=== PATIENT | female | born 1945 | race Caucasian/White ===

== ENCOUNTER 2017-09-15 12:20 | Emergency (ER) | payer SELFPAY, OTHER, MEDICARE | END 2017-09-15 15:30 | disposition left against medical advice (07) | LOC: FTE 12:20 | DX: Z53.21 Procedure and treatment not carried out due to patient leaving prior to being seen by health care provider (principal) ==

== ENCOUNTER 2017-10-24 15:39 | Emergency (ER) | payer SELFPAY | END 2017-10-24 17:35 | disposition left against medical advice (07) | LOC: E/R 17:35 | DX: Z53.21 Procedure and treatment not carried out due to patient leaving prior to being seen by health care provider (principal) ==

== ENCOUNTER 2017-10-25 08:55 | Emergency (ER) | payer MEDICARE, OTHER ==
[2017-10-25] MEDS: SOD CHLORIDE 0.9% 500 ML IV (10:04)
[2017-10-25 10:13] LABS: ADD MAN DIFF? NO
[2017-10-25 10:24] LABS: WHITE BLOOD COUNT 5.4 10^3/ul (4.8-10.8)
[2017-10-25 10:24] LABS: BASOPHILS % 0.6 % (0.0-2.0); EOSINOPHILS # 0.2 10^3/ul (0.0-0.5); EOSINOPHILS % 4.1 % (0.0-7.0); HEMATOCRIT 41.5 % (37.0-47.0); HEMOGLOBIN 13.6 g/dl (12.0-16.0); LYMPHOCYTES # 1.5 10^3/ul (0.8-2.9); LYMPHOCYTES % 28.4 % (15.0-51.0); MEAN CORPUSCULAR HEMOGLOBIN 28.9 pg (29.0-33.0); MEAN CORPUSCULAR HGB CONC 32.8 g/dl (32.0-37.0); MEAN CORPUSCULAR VOLUME 88.1 fl (82.0-101.0); MEAN PLATELET VOLUME 12.1 fl (7.4-10.4); MONOCYTE # 0.4 10^3/ul (0.3-0.9); MONOCYTES % 7.4 % (0.0-11.0); NEUTROPHIL # 3.2 10^3/ul (1.6-7.5); NEUTROPHILS % 59.1 % (39.0-77.0); PLATELET COUNT 138 10^3/UL (140-415); RED BLOOD COUNT 4.71 10^6/ul (4.20-5.40); RED CELL DISTRIBUTION WIDTH 13.6 % (11.5-14.5)
[2017-10-25 10:46] LABS: ADD UMIC YES; ALANINE AMINOTRANSFERASE 21 IU/L (13-69); ALBUMIN 4.1 g/dl (3.3-4.9); ALKALINE PHOSPHATASE 68 IU/L (42-121); ANION GAP 15 (8-16); ASPARTATE AMINO TRANSFERASE 20 IU/L (15-46); BILIRUBIN,INDIRECT 0.5 mg/dl (0-1.1); BILIRUBIN,TOTAL 0.5 mg/dl (0.2-1.3); BLOOD UREA NITROGEN 26 mg/dl (7-20); CALCIUM 9.2 mg/dl (8.4-10.2); CARBON DIOXIDE 27 mmol/L (21-31); CHLORIDE 104 mmol/L (97-110); CREATININE 1.05 mg/dl (0.44-1.00); GLUCOSE 101 mg/dl (70-220); LIPASE 56 U/L (23-300); POTASSIUM 4.3 mmol/L (3.5-5.1); SODIUM 142 mmol/L (135-144); TOTAL PROTEIN 7.5 g/dl (6.1-8.1); UR ASCORBIC ACID NEGATIVE (NEGATIVE); UR BILIRUBIN (Dip) NEGATIVE (NEGATIVE); UR BLOOD (Dip) NEGATIVE (NEGATIVE); UR CLARITY CLEAR (CLEAR); UR COLOR YELLOW (YELLOW); UR GLUCOSE (Dip) NEGATIVE (NEGATIVE); UR KETONES (Dip) NEGATIVE (NEGATIVE); UR LEUKOCYTE ESTERASE (Dip) 1+ Leu/ul (NEGATIVE); UR NITRITE (Dip) NEGATIVE (NEGATIVE); UR RBC 0 /HPF (0-5); UR SPECIFIC GRAVITY (Dip) 1.009 (1.003-1.030); UR SQUAMOUS EPITHELIAL CELL FEW /HPF (FEW); UR TOTAL PROTEIN (Dip) NEGATIVE (NEGATIVE); UR UROBILINOGEN (Dip) NEGATIVE (NEGATIVE); UR WBC 1 /HPF (0-5)
[2017-10-25 11:13] LABS: TROPONIN-I < 0.012 ng/ml (0.00-0.12)
== END 2017-10-25 13:17 | disposition home or self-care (01) ==
LOC: E/R 08:55
DX: R53.1 Weakness (principal); R22.42 Localized swelling, mass and lump, left lower limb; I10 Essential (primary) hypertension; E11.9 Type 2 diabetes mellitus without complications; Z79.84 Long term (current) use of oral hypoglycemic drugs
CPT/HCPCS: 36415; 80053; 81001; 83690; 84484; 85025; 93005; 93971; 96360; 99284-25

== ENCOUNTER 2018-07-15 13:00 | Emergency (ER) | payer SELFPAY, OTHER, MEDICARE | END 2018-07-15 15:47 | disposition left against medical advice (07) | LOC: E/R 13:00 | DX: Z53.21 Procedure and treatment not carried out due to patient leaving prior to being seen by health care provider (principal) ==

== ENCOUNTER 2018-10-20 11:54 | Emergency (ER) | payer MEDICARE ==
[2018-10-20 12:45] LABS: URINE PH (Dip) POC 5.5 (5.0-8.5)
[2018-10-20 12:45] LABS: URINE BLOOD (Dip) POC Trace-intact (NEGATIVE); URINE GLUCOSE (Dip) POC Negative (NEGATIVE); URINE KETONES (Dip) POC Negative (NEGATIVE); URINE LEUKOCYTE EST (Dip) POC 3+ (NEGATIVE); URINE NITRITE (Dip) POC Negative (NEGATIVE); URINE TOTAL PROTEIN POC Negative (NEGATIVE)
[2018-10-20 12:50] LABS: ADD MAN DIFF? NO
[2018-10-20 12:53] LABS: BASOPHILS % 0.4 % (0.0-2.0); EOSINOPHILS # 0.2 10^3/ul (0.0-0.5); EOSINOPHILS % 2.4 % (0.0-7.0); HEMATOCRIT 39.6 % (37.0-47.0); HEMOGLOBIN 13.2 g/dl (12.0-16.0); LYMPHOCYTES # 2.1 10^3/ul (0.8-2.9); LYMPHOCYTES % 31.7 % (15.0-51.0); MEAN CORPUSCULAR HEMOGLOBIN 29.1 pg (29.0-33.0); MEAN CORPUSCULAR HGB CONC 33.3 g/dl (32.0-37.0); MEAN CORPUSCULAR VOLUME 87.4 fl (82.0-101.0); MEAN PLATELET VOLUME 11.3 fl (7.4-10.4); MONOCYTE # 0.6 10^3/ul (0.3-0.9); MONOCYTES % 8.4 % (0.0-11.0); NEUTROPHIL # 3.8 10^3/ul (1.6-7.5); NEUTROPHILS % 56.8 % (39.0-77.0); PLATELET COUNT 192 10^3/UL (140-415); RED BLOOD COUNT 4.53 10^6/ul (4.20-5.40); RED CELL DISTRIBUTION WIDTH 13.7 % (11.5-14.5)
[2018-10-20 12:53] LABS: WHITE BLOOD COUNT 6.8 10^3/ul (4.8-10.8)
[2018-10-20 13:15] LABS: ANION GAP 12 (5-13); BLOOD UREA NITROGEN 28 mg/dl (7-20); CALCIUM 9.4 mg/dl (8.4-10.2); CARBON DIOXIDE 24 mmol/L (21-31); CHLORIDE 102 mmol/L (97-110); CREATININE 1.15 mg/dl (0.44-1.00); GLUCOSE 108 mg/dl (70-220); POTASSIUM 4.7 mmol/L (3.5-5.1); SODIUM 138 mmol/L (135-144)
[2018-10-20 13:18] LABS: INR 0.95; PARTIAL THROMBOPLASTIN TIME 29.4 Sec (23.0-35.0); PROTIME 12.8 Sec (11.9-14.9)
[2018-10-20 13:25] LABS: TROPONIN-I < 0.012 ng/ml (0.000-0.120)
[2018-10-20] MEDS: CEFTRIAXONE 1 GM/50 ML (PMX) 50 ML IVPB (13:27)
[2018-10-20] MEDS: SOD CHLORIDE 0.9% 1,000 ML IV (14:30)
[2018-10-20 17:49] LABS: URINE BLOOD (Dip) POC 2+ (NEGATIVE); URINE GLUCOSE (Dip) POC Negative (NEGATIVE); URINE KETONES (Dip) POC Negative (NEGATIVE); URINE LEUKOCYTE EST (Dip) POC Trace (NEGATIVE); URINE NITRITE (Dip) POC Negative (NEGATIVE); URINE TOTAL PROTEIN POC Negative (NEGATIVE)
== END 2018-10-20 18:16 | disposition home or self-care (01) ==
LOC: E/R 11:54
DX: N39.0 Urinary tract infection, site not specified (principal); E86.0 Dehydration; I10 Essential (primary) hypertension; E11.9 Type 2 diabetes mellitus without complications; I25.10 Atherosclerotic heart disease of native coronary artery without angina pectoris; R07.9 Chest pain, unspecified; Z79.82 Long term (current) use of aspirin; Z79.84 Long term (current) use of oral hypoglycemic drugs
CPT/HCPCS: 36415; 70450; 71045; 80048; 81003; 82962; 84484; 85025; 85610; 85730; 87086; 93005; 96365; 96366; 99285-25

== ENCOUNTER 2018-11-08 09:27 | Emergency (ER) | payer MEDICARE, OTHER | END 2018-11-08 12:30 | disposition home or self-care (01) | LOC: E/R 09:27 | DX: B34.9 Viral infection, unspecified (principal); J40 Bronchitis, not specified as acute or chronic; I10 Essential (primary) hypertension; E11.9 Type 2 diabetes mellitus without complications; Z79.82 Long term (current) use of aspirin | CPT/HCPCS: 71045; 87400; 93005; 99285-25 ==

== ENCOUNTER 2019-02-02 07:38 | Emergency (ER) | payer MEDICARE, OTHER ==
[2019-02-02] MEDS: DEXAMETHASONE 10 MG/ML 1 ML INJ IM (08:07)
[2019-02-02] MEDS: CEFTRIAXONE 1 GM INJ IM (08:07)
[2019-02-02] MEDS: LIDOCAINE 1% (MPF) 5 ML VIAL INJ (08:07)
[2019-02-02] MEDS: IPRATROPIUM (NEB) 0.5 MG/2.5 ML AMP HHN (08:21)
[2019-02-02] MEDS: ALBUTEROL 0.083% (NEB) 2.5 MG/3 ML AMP HHN (08:22)
== END 2019-02-02 09:35 | disposition home or self-care (01) ==
LOC: FTE 09:35
DX: J40 Bronchitis, not specified as acute or chronic (principal); I10 Essential (primary) hypertension; E11.9 Type 2 diabetes mellitus without complications; Z79.82 Long term (current) use of aspirin
CPT/HCPCS: 71045; 94664; 96372; 99284-25

== ENCOUNTER 2019-02-20 19:15 | Emergency (ER) | payer MEDICARE, OTHER ==
[2019-02-20] MEDS: ACETAMINOPHEN 325 MG TAB PO (20:58)
== END 2019-02-20 22:54 | disposition home or self-care (01) ==
LOC: FTE 19:15
DX: R51 Headache (principal); I10 Essential (primary) hypertension; E11.9 Type 2 diabetes mellitus without complications; Z79.82 Long term (current) use of aspirin
CPT/HCPCS: 70450; 93005; 99284-25